=== PATIENT | female | born 1990 | race African-American/Black ===

== ENCOUNTER 2016-07-02 09:42 | Outpatient (CLI) | payer BC ==
--- NOTE | 2016-07-02 15:24 | XRay Report ---
LUMBOSACRAL SPINE, FIVE VIEWS: HISTORY: Back pain. Views of the lumbosacral spine demonstrate normal bony alignment, vertebral height and interspace distances. Oblique views show patent foramina and normal apophyseal joint alignment. IMPRESSION: Normal study.
== END 2016-07-02 09:43 | disposition home or self-care (01) ==
LOC: SPVIMAG 09:42
PROVIDERS: ATTEND Family Medicine
DX: M54.5 Low back pain (principal)
CPT/HCPCS: 72110